=== PATIENT | male | born 1990 | race Caucasian/White ===

== ENCOUNTER 2022-05-23 15:19 | Outpatient (CLI) | payer OTHER, SELFPAY ==
--- OUTSIDE RECORDS SUMMARY | 2022-05-23 15:21 | XMS_ITS | Encounter Summary ---
:1990 Author Organization [facility] Address [address] [facility] [address] Care Team Providers Name Role Phone None Primary Care Provider Unavailable Reason for Visit Reason Comments Flu Shot Encounter Details Date Type Department Care Team Description 07/26/2016 Allied Health/Nurse [facility] Nurse, [facility] Flu Shot Visit [address] [address] Social History Tobacco Use Types Packs/Day Years Used Date Never Assessed Sex Assigned at Date Recorded Not on file documented as of this encounter Nursing Notes Johnny Melgoza - 07/26/2016 2:59 PM CDT Injectable Influenza Immunization Documentation 1. Has the patient received the information for the injectable influenza vaccine? YES 2. Is the patient 6 months of age or older? YES 3. Does the patient have any of the following contraindications? Severe allergy to eggs? No Severe allergic reaction to previous influenza vaccines? No Allergy to contact lens solution/thimerosol? Not indicated History of Guillain-[place] syndrome? No Undergoing chemotherapy or radiation therapy? (vaccine should be given at least 2 weeks prior or 3 weeks after) Not indicated Currently have moderate or severe illness? No 4. The vaccine has been administered and the patient was instructed to wait 15 minutes before leaving the building in the event of an allergic reaction: YES Vaccination given by Ailyn Valdez documented in this encounter Plan of Treatment Not on filedocumented as of this encounter Visit Diagnoses Diagnosis Need for influenza vaccination - Primary Need for prophylactic vaccination and in oculation against influenza documented in this encounter Care Teams Short Order Cook Relationship Specialty Start Date End Date None PCP - General 07/26/16 06/06/17 documented as of this encounter
--- OUTSIDE RECORDS SUMMARY | 2022-05-23 15:21 | XMS_ITS | Encounter Summary ---
:1990 Author Organization [facility] Address [address] [place] [address]. [place] [address] Care Team Providers Name Role Phone Unavailable Primary Care Provider Unavailable Encounter Details Date Type Department Care Team Description 09/10/2019 Medical Correspondence [facility] Scan, CLINIC REFERRAL Health Info Mgmt Non-Provider [facility] [address] [place] [phone] Social History Tobacco Use Types Packs/Day Years Used Date Never Assessed Sex Assigned at Date Recorded Not on file documented as of this encounter Plan of Treatment Not on filedocumented as of this encounter Visit Diagnoses Not on filedocumented in this encounter
--- OUTSIDE RECORDS SUMMARY | 2022-05-23 15:21 | XMS_ITS | Encounter Summary ---
:1990 Author Organization [facility] Address [address] [facility] [place] [address] Care Team Providers Name Role Phone No Ref-Primary, Physician Primary Care Provider [phone] Reason for Referral CV Testing (Routine) - Closed Specialty Diagnoses / Procedures Referred By Contact Refer red To Contact Cardiology Diagnoses Coarctation of aorta (preductal) (postductal) HTN (hypertension) May Martines MD Rh Cv Cardiac Svc [facility] Procedures 24 Hour Blood Pressure Monitor - Adult [facility] [address] [place] [address] [address] [facility] [address] [place], [place] [phone] Fax: Referral ID Status Reason Start Date Expiration Date Visits Requ ested Visits Authorized [id number] Closed 09/10/2019 09/09/2020 1 1 RY FINISHER Reason for Visit CV Testing (Routine) - Closed Specialty Diagnoses / Procedures Referred By Contact Refer red To Contact Cardiology Diagnoses Coarctation of aorta (preductal) (postductal) HTN (hypertension) May Matrines MD Rh Cv Cardiac Svc [facility] Procedures 24 Hour Blood Pressure Monitor - Adult [facility] [address] [place], [place] [phone] Fax: Referral ID Status Reason Start Date Expiration Date Visits Requ ested Visits Authorized [id number] Closed 09/10/2019 09/09/2020 1 1 Encounter Details Date Type Department Care Team Description 10/08/2019 [facility] Non-Fv Credentialed Pro vider, Radiology Coarctation of aorta (preductal) (postductal); Encounter [place] [facility] May Martines MD [facility] [address] [facility] [address] [place], [place] [id number] HTN (hypertension) [facility] [address] [facility] [address] [place] [address] Social History Tobacco Use Types Packs/Day Years Used Date Never Assessed Sex Assigned at Date Recorded Not on file documented as of this encounter Progress Notes Nasreen Hodges - 10/08/2019 1:03 PM CST 24 hour ABP placed. RY FINISHER documented in this encounter Plan of Treatment Not on filedocumented as of this encounter Procedures Procedure Name Priority Date/Time Associated Diagnosis Comme nts 24 HOUR BLOOD PRESSURE Routine 10/08/2019 1:03 PM PASTRY FINISHER Coarctat ion of aorta MONITOR - ADULT (preductal) (postductal) HTN (hypertension) documented in this encounter Results 24 Hour Blood Pressure Monitor - Adult (10/08/2019 1:03 PM PASTRY FINISHER) Anatomical Region Laterality Modality Other Specimen (Source) Anatomical Location Collection Method / Collectio n Time Received Time / Laterality Volume Narrative This result has an attachment that is no t available. Radiology Non-Fv Credentialed Provider CV CARDIAC SERV ICES ORDERABLES documented in this encounter Visit Diagnoses Diagnosis Coarctation of aorta (preductal) (postdu ctal) HTN (hypertension) Unspecified essential hypertension documented in this encounter Care Teams Catalyst Operator Gasoline Relationship Specialty Start Date End Date No Ref-Primary, Physician PCP - General 10/08/19 documented as of this encounter
--- OUTSIDE RECORDS SUMMARY | 2022-05-23 15:21 | XMS_ITS | Encounter Summary ---
:1990 Author Organization [facility] Address [address] [place] [address] Care Team Providers Name Role Phone No Ref-Primary, Physician Primary Care Provider [phone] Encounter Details Date Type Department Care Team Description 10/08/2019 Travel Social History Tobacco Use Types Packs/Day Years Used Date Never Assessed Sex Assigned at Date Recorded Not on file documented as of this encounter Plan of Treatment Not on filedocumented as of this encounter Visit Diagnoses Not on filedocumented in this encounter Care Teams Logging Equipment Operator Relationship Specialty Start Date End Date No Ref-Primary, Physician PCP - General 10/08/19 documented as of this encounter
--- OUTSIDE RECORDS SUMMARY | 2022-05-23 15:21 | XMS_ITS | Encounter Summary ---
:1990 Author Organization [facility] Address [address] [facility] [place] [address] Care Team Providers Name Role Phone Unavailable Primary Care Provider Unavailable Reason for Referral CV Testing (Routine) - Closed Specialty Diagnoses / Procedures Referred By Contact Refer red To Contact Cardiology Diagnoses Coarctation of aorta (preductal) (postductal) HTN (hypertension) May Martines MD Cv Cardiac Svc [facility] Procedures 24 Hour Blood Pressure Monitor - Adult [facility] [address] [facility] [address] [place], [place] [phone] Fax: Referral ID Status Reason Start Date Expiration Date Visits Requ ested Visits Authorized [id number] Closed 09/10/2019 09/09/2020 1 1 CAN FEEDER Encounter Details Date Type Department Care Team Description 09/10/[address] [facility] May Martinestigayla n of aorta (preductal) (postductal) (Primary Dx); [facility] MD Pilar HTN (hypertension) Heart Care [facility] [address] [facility] [address] [place] [address] [phone] Social History Tobacco Use Types Packs/Day Years Used Date Never Assessed Sex Assigned at Date Recorded Not on file documented as of this encounter Plan of Treatment Not on filedocumented as of this encounter Results 24 Hour Blood Pressure Monitor - Adult (10/08/2019 1:03 PM TIN CAN FEEDER) Anatomical Region Laterality Modality Other Specimen (Source) Anatomical Location Collection Method / Collectio n Time Received Time / Laterality Volume Narrative This result has an attachment that is no t available. Radiology Non-Fv Credentialed Provider CV CARDIAC SERV ICES ORDERABLES documented in this encounter Visit Diagnoses Diagnosis Coarctation of aorta (preductal) (postdu ctal) - Primary HTN (hypertension) Unspecified essential hypertension documented in this encounter
--- OUTSIDE RECORDS SUMMARY | 2022-05-23 15:21 | XMS_ITS | Clinical Summary ---
:1990 Author Organization [facility] Address [address] [place] [address] Care Team Providers Name Role Phone No Ref-Primary, Physician Primary Care Provider [phone] Immunizations Name Administration Dates Next Due Influenza Vaccine IM > 6 months Valent IIV4 07/26/2016 (Oseas Ennis) Social History Tobacco Use Types Packs/Day Years Used Date Never Assessed Sex Assigned at Date Recorded Not on file Plan of Treatment Health Maintenance Due Date Last Done Comments ADVANCE CARE PLANNING 1990 ANNUAL REVIEW OF HM ORDERS 1989 PREVENTIVE CARE VISIT 1989 COVID-19 Vaccine (#1) 1989 HIV SCREENING 2004 HEPATITIS C SCREENING 2007 DTAP/TDAP/TD IMMUNIZATION (1 2014 - Tdap) PHQ-2 (once per calendar 10/07/2021 year) INFLUENZA VACCINE (#1) 2022 07/04/2018, 10/22/2017, 07/26/2016 HEPATITIS B IMMUNIZATION Aged Out No long er eligible based on patient's age to complete this to pic IPV IMMUNIZATION Aged Out No longer eligi ble based on patient's age to complete this to pic MENINGITIS IMMUNIZATION Aged Out No longe r eligible based on patient's age to complete this to pic Pneumococcal Vaccine: Aged Out No longer eligible based Pediatrics (0 to 5 Years) and on patient's age to At-Risk Patients (6 to 64 comple te this topic Years) Insurance Payer Benefit Plan / Subscriber ID Effective Phone Address T ype Group Dates PREFERREDONE PREFERREDONE [id number] 2021-Pres [phone] [address] [facility] [phone] [employer] [place] [phone] BCBS BCBS OUT OF [id number] 2016-Pre [phone] [address] Indemnity STATE 1 sent [phone] [place] [address] [facility] Special Other ATTN FRANCISCO CHRISTY,EMPLOYEE Guarantor (Home) MEGHAN Obrien [address] [place] [address] Care Teams Terrazzo Journeyman Relationship Specialty Start Date End Date No Ref-Primary, Physician PCP - General 10/08/19
[2022-05-23 17:42] LABS: Chloride* 101 mmol/L (96-114); Potassium* 4.4 mmol/L (3.6-5.1); Sodium* 139 mmol/L (135-149)
[2022-05-23 17:45] LABS: Blood Urea Nitrogen* 19 mg/dL (5-24); Carbon Dioxide* 23 mmol/L (20-32); Estimated Glomerular Filt Rate 103 ml/min
[2022-05-23 17:46] LABS: Calcium* 9.6 mg/dL (8.4-10.6); Glucose* 100 mg/dL (60-115)
== END 2022-05-23 15:20 | disposition home or self-care (01) ==
LOC: NFLDREF 15:20
PROVIDERS: PCP Family Medicine; Visit Provider Family Medicine
DX: I10 Essential (primary) hypertension (principal)
CPT/HCPCS: 80048

== ENCOUNTER 2022-12-05 10:49 | Outpatient (CLI) | payer OTHER, SELFPAY | END 2022-12-05 10:50 | disposition home or self-care (01) | LOC: NFLDREF 10:51 | PROVIDERS: PCP Family Medicine; Visit Provider Family Medicine | DX: I10 Essential (primary) hypertension (principal) | CPT/HCPCS: 80053 ==

== ENCOUNTER 2022-12-19 15:19 | Outpatient (CLI) | payer OTHER, SELFPAY | END 2022-12-19 15:20 | disposition home or self-care (01) | LOC: NFLDREF 12-21 13:39 | PROVIDERS: PCP Family Medicine; Referring Provider Family Medicine; Visit Provider Family Medicine | DX: I10 Essential (primary) hypertension (principal) | CPT/HCPCS: 80048 ==

== ENCOUNTER 2023-05-28 14:22 | Outpatient (CLI) | payer OTHER, SELFPAY | END 2023-05-28 14:23 | disposition home or self-care (01) | PROVIDERS: PCP Family Medicine; Visit Provider Family Medicine | DX: Z00.00 Encounter for general adult medical examination without abnormal findings (principal); I10 Essential (primary) hypertension; E66.9 Obesity, unspecified; Z13.1 Encounter for screening for diabetes mellitus; Z13.6 Encounter for screening for cardiovascular disorders | CPT/HCPCS: 80048; 80061 ==

== ENCOUNTER 2024-09-07 16:13 | Outpatient (CLI) | payer OTHER, SELFPAY ==
--- OUTSIDE RECORDS SUMMARY | 2024-09-10 06:31 | XMS_ITS | Clinical Summary ---
Author Organization [facility] Address [place], [place] [address] Care Team Providers Care Gun Number Name Role Phone Clinic, No Pcp Or Primary Care Provider Luanaa May Davis MD Unavailable [phone] Allergies No known active allergies Medications Medication Sig Dispensed Refills Start Date End Date Status lisinopriL (PRINIVIL; ZESTRIL) 20 mg tabletIndications:Prima ry hypertension Take 1 Tablet (20 mg) by mouth once daily. 12/17/2023 Active Active Problems Problem Noted Date Diagnosed Date Coarctation of aorta 01/07/2024 Status post aortic coarctation repair 09/10/2019 Adult congenital heart disease 09/10/2019 Bicuspid aortic valve 09/09/2019 H/O aortic coarctation repair 09/09/2019 Social History Tobacco Use Types Packs/Day Years Used Date Smoking Tobacco: Never Smokeless Tobacco: Former Chew Quit: 09/09/2017 Alcohol Use Standard Drinks/Week Comments Yes 0 (1 standard drink = 0.6 oz pur e alcohol) occ Social Connections Answer Date Recorded Frequency of Communication with Friends and Fami ly Not on file 12/17/2023 Financial Resource Strain Answer Date R ecorded Difficulty of Paying Living Expenses Not on file 10/02/2021 Difficulty of Paying Living Expenses Not on file 10/02/2021 Sex and Gender Information Value Date Recorded Sex Assigned at Not on file Gender Identity Not on file Sexual Orientation Not on file Obstetrics History Last Filed Vital Signs Vital Sign Reading Time Taken Comments Blood Pressure 172/100 12/17/2023 2:53 PM CDT Pulse 80 12/17/2023 2:50 PM CDT Temperature - - Respiratory Rate - - Oxygen Saturation 97% 12/17/2023 2:50 PM CDT Inhaled Oxygen Concentration - - Weight 111.6 kg (246 lb) 12/17/2023 2:50 PM CDT Height 185.4 cm (6' 1) 12/17/2023 2:50 PM CDT Body Mass Index 32.46 12/17/2023 2:50 PM CDT Plan of Treatment Health Maintenance Due Date Last Done Comments Tdap 2000 Depression screening for age 12+ 2001 HIV for age 15-65 2004 Hepatitis C screening for age 18-79 2007 Tetanus booster 2009 Lipids for age 35-44 2024 COVID-19 vaccine series ( season) 2024 08/27/2022, 10/13/2021, 02/27/2021, Additional history exists Influenza for age 9-49 06/07/2024 BMI (ht and wt on same day) for age 18+ 12/16/2024 12/17/2023, 04/24/2021, 09/09/2019 Pneumococcal series for age 6-64 Aged Out No longer eligible based on patient's age to complete this topic Care Teams Gun Number Relationship Specialty Start Date End Date Clinic, No Pcp Or . PCP - General 06/10/19 May Martines MD . Adult Congenital Heart Disease Program Cardiology - Pediatric 10/01/19
--- OUTSIDE RECORDS SUMMARY | 2024-09-10 06:31 | XMS_ITS | Referral Summary ---
Author Organization [facility] Address [address] [place] [address] Care Team Providers Care Fire Systems Inspector Name Role Phone No Ref-Primary, Physician Primary Care Provider Immunizations Name Administration Dates Next Due Influenza Vaccine >6 months,quad, PF 07/26/2016 Social History Tobacco Use Types Packs/Day Years Used Date Smoking Tobacco: Never Assessed Sex and Gender Information Value Date Recorded Sex Assigned at Not on file Legal Sex Male 1:50 PM CDT Gender Identity Not on file Sexual Orientation Not on file Plan of Treatment Not on file Insurance [place] [address] BCBS OUT OF STATE Care Teams Fire Systems Inspector Relationship Specialty Start Date End Date No Ref-Primary, Physician PCP - General 10/08/19
--- OUTSIDE RECORDS SUMMARY | 2024-09-10 06:31 | XMS_ITS | Clinical Summary ---
Author Organization [facility] Address [address] [place] [address] Care Team Providers Care Dairy Processing Equipment Operator Name Role Phone No Ref-Primary, Physician Primary [...] on file Insurance BCBS OUT OF STATE BCBS OUT OF STATE Care Teams Dairy Processing Equipment Operator Relationship Specialty Start Date End Date No Ref-Primary, Physician PCP - General 10/08/19
== END 2024-09-07 16:14 | disposition home or self-care (01) ==
LOC: NFLDREF 09-10 06:30
PROVIDERS: PCP Family Medicine; Referring Provider Family Medicine; Visit Provider Family Medicine
DX: E78.5 Hyperlipidemia, unspecified (principal); I10 Essential (primary) hypertension
CPT/HCPCS: 80053; 80061